=== PATIENT | female | born 1990 | race Caucasian/White ===

== ENCOUNTER 2019-08-31 05:40 | Inpatient (IN) | payer MEDICAID ==
[~2019-08-31 05:40] MED LIST: Bupivacaine 0.25% 10 ML SDV ONE; Nalbuphine 10 MG/1 ML Vial IVPUSH PRN; Sodium Chloride 0.9% 10 ML Syringe FLUSH PRN
[2019-08-31] MEDS ORDERED: Terbutaline 1 MG/ML SDV SUBCUT ONE (06:52)
--- NOTE | 2019-08-31 07:39 | PCM.PREANE ---
Preanesthetic Assessment - Anesthesia/Transfusion/Family Hx Anesthesia History: Prior Anesthesia Without Reaction Family History of Anesthesia Reaction: No Transfusion History: No Prior Transfusion(s) - Review of Systems General: No Symptoms Pulmonary: No Symptoms Cardiovascular: No Symptoms Gastrointestinal: No Symptoms Neurological: No Symptoms Other: Reports: None - Physical Assessment Vital Signs: Last Vital Signs Temp 36.3 C 08/31/19 05:58 Pulse 81 08/31/19 05:58 Resp 16 08/31/19 05:58 BP 111/73 08/31/19 05:58 Pulse Ox 100 08/31/19 05:58 Height: 5 ft 3 in Weight: 79.424 kg ASA Class: 1 Mental Status: Alert & Oriented x3 Airway Class: Mallampati = 2 Dentition: Reports: Normal Dentition ROM/Head Extension: Full Lungs: Clear to Auscultation, Normal Respiratory Effort Cardiovascular: Regular Rate, Regular Rhythm - Lab Values: Laboratory Last Values WBC 9.98 K/mm3 (3.98-10.04) 08/31/19 06:24 RBC 3.94 M/mm3 (3.98-5.22) L 08/31/19 06:24 Hgb 12.3 gm/dl (11.2-15.7) 08/31/19 06:24 Hct 35.7 % (34.1-44.9) 08/31/19 06:24 MCV 90.6 fl (79.4-94.8) 08/31/19 06:24 MCH 31.2 pg (25.6-32.2) 08/31/19 06:24 MCHC 34.5 g/dl (32.2-35.5) 08/31/19 06:24 RDW Std Deviation 42.4 fL (36.4-46.3) 08/31/19 06:24 Plt Count 170 K/mm3 (182-369) L 08/31/19 06:24 MPV 12.1 fl (9.4-12.3) 08/31/19 06:24 Neut % (Auto) 71.7 % (34.0-71.1) H 08/31/19 06:24 Lymph % (Auto) 17.5 % (19.3-51.7) L 08/31/19 06:24 [place] % (Auto) 9.3 % (4.7-12.5) 08/31/19 06:24 Eos % (Auto) 1.3 (0.7-5.8) 08/31/19 06:24 Baso % (Auto) 0.2 % (0.1-1.2) 08/31/19 06:24 Neut # (Auto) 7.15 K/mm3 (1.56-6.13) H 08/31/19 06:24 Lymph # (Auto) 1.75 K/mm3 (1.18-3.74) 08/31/19 06:24 [place] # (Auto) 0.93 K/mm3 (0.24-0.36) H 08/31/19 06:24 Eos # (Auto) 0.13 K/mm3 (0.04-0.36) 08/31/19 06:24 Baso # (Auto) 0.02 K/mm3 (0.01-0.08) 08/31/19 06:24 - Allergies Allergies/Adverse Reactions: Allergies Allergy/AdvReac Type Severity Reaction Status Date / Time Penicillins Allergy Hives Verified 08/31/19 05:52 metals Allergy Rash Uncoded 08/31/19 05:52 - Acknowledgements Anesthesia Type Planned: Spinal Pt an Appropriate Candidate for the Planned Anesthesia: Yes Alternatives and Risks of Anesthesia Discussed w Pt/Guardian: Yes Pt/Guardian Understands and Agrees with Anesthesia Plan: Yes PreAnesthesia Questionnaire HEENT History: Reports: None Cardiovascular History: Reports: None Respiratory History: Reports: None Gastrointestinal History: Reports: None Genitourinary History: Reports: None 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: , Spontaneous , Therapeutic , Other (See Below) Other OB/BYN History: abnormal pap Musculoskeletal History: Reports: Back Pain, Chronic Neurological History: Reports: None Psychiatric History: Reports: None Endocrine/Metabolic History: Reports: None Hematologic History: Reports: Anemia Immunologic History: Reports: None Oncologic (Cancer) History: Reports: None Dermatologic History: Reports: None - Past Surgical History Female Surgical History: Reports: D&C - SUBSTANCE USE Smoking Status *Q: Former Smoker Tobacco Use Within Last Twelve Months: Cigarettes Recreational Drug Use History: No - HOME MEDS Home Medications: Home Meds PNV95/Ferrous Fumarate/FA [ Tablet] 1 tab PO DAILY 10/01/18 [History] Ascorbic Acid [Vitamin C] 250 mg PO 08/31/19 [History] Cyanocobalamin (Vitamin B-12) [B-12] 1,000 mcg PO 08/31/19 [History] Ferrous Sulfate, Dried [Iron] 150 mg PO 08/31/19 [History] - CURRENT (IN HOUSE) MEDS Current Meds: Current Medications Lactated Ringer's (Ringers, Lactated) 1,000 mls @ 100 mls/hr IV ASDIRECTED NISHA Nalbuphine HCl (Nubain) 10 mg IVPUSH Q2H PRN PRN Reason: Pain Sodium Chloride (Saline Flush) 10 ml FLUSH ASDIRECTED PRN PRN Reason: Keep Vein Open Discontinued Medications Terbutaline Sulfate (Brethine) 0.25 mg SUBCUT ONETIME ONE Stop: 08/31/19 06:53 Last Admin: 08/31/19 07:17 Dose: 0.25 mg
[2019-08-31] MEDS ORDERED: fentaNYL 100 MCG/2 ML SDV EPIDUR PRN (07:40)
[2019-08-31] MEDS ORDERED: Ondansetron 4 MG/2 ML SDV IVPUSH PRN (07:40)
[2019-08-31] MEDS ORDERED: ePHEDrine 50 MG/ML SDV IVPUSH PRN (07:40)
--- NOTE | 2019-08-31 07:43 | PCM.PREANE ---
Preanesthetic Assessment - Anesthesia/Transfusion/Family Hx Anesthesia History: Prior Anesthesia Without Reaction Family History of Anesthesia Reaction: No Transfusion History: No Prior Transfusion(s) Intubation History: Unknown - Review of Systems General: No Symptoms Pulmonary: No Symptoms Cardiovascular: Lightheadedness (positonal changes with ) Gastrointestinal: No Symptoms (GERD) Neurological: No Symptoms Other: Reports: None - Physical Assessment NPO Status Date: 08/31/19 NPO Status Time: 08:30 Vital Signs: Last Vital Signs Temp 36.3 C 08/31/19 05:58 Pulse 81 08/31/19 05:58 Resp 16 08/31/19 05:58 BP 111/73 08/31/19 05:58 Pulse Ox 100 08/31/19 05:58 Height: 1.6 m Weight: 79.424 kg ASA Class: 2 Mental Status: Alert & Oriented x3 Airway Class: Mallampati = 2 Dentition: Reports: Normal Dentition, [place] Thyro-Mental Finger Breadths: 3 Mouth Opening Finger Breadths: 3 ROM/Head Extension: Full Lungs: Clear to Auscultation, Normal Respiratory Effort Cardiovascular: Regular Rate, Regular Rhythm, No Murmurs - Lab Values: Laboratory Last Values WBC 9.98 K/mm3 (3.98-10.04) 08/31/19 06:24 RBC 3.94 M/mm3 (3.98-5.22) L 08/31/19 06:24 Hgb 12.3 gm/dl (11.2-15.7) 08/31/19 06:24 Hct 35.7 % (34.1-44.9) 08/31/19 06:24 MCV 90.6 fl (79.4-94.8) 08/31/19 06:24 MCH 31.2 pg (25.6-32.2) 08/31/19 06:24 MCHC 34.5 g/dl (32.2-35.5) 08/31/19 06:24 RDW Std Deviation 42.4 fL (36.4-46.3) 08/31/19 06:24 Plt Count 170 K/mm3 (182-369) L 08/31/19 06:24 MPV 12.1 fl (9.4-12.3) 08/31/19 06:24 Neut % (Auto) 71.7 % (34.0-71.1) H 10/02/19 06:24 Lymph % (Auto) 17.5 % (19.3-51.7) L 08/31/19 06:24 [place] % (Auto) 9.3 % (4.7-12.5) 08/31/19 06:24 Eos % (Auto) 1.3 (0.7-5.8) 08/31/19 06:24 Baso % (Auto) 0.2 % (0.1-1.2) 08/31/19 06:24 Neut # (Auto) 7.15 K/mm3 (1.56-6.13) H 08/31/19 06:24 Lymph # (Auto) 1.75 K/mm3 (1.18-3.74) 08/31/19 06:24 [place] # (Auto) 0.93 K/mm3 (0.24-0.36) H 08/31/19 06:24 Eos # (Auto) 0.13 K/mm3 (0.04-0.36) 08/31/19 06:24 Baso # (Auto) 0.02 K/mm3 (0.01-0.08) 08/31/19 06:24 Above labs reviewed and noted and within acceptable ranges to proceed with epidural if desired. - Allergies Allergies/Adverse Reactions: Allergies Allergy/AdvReac Type Severity Reaction Status Date / Time Penicillins Allergy Hives Verified 08/31/19 05:52 metals Allergy Rash Uncoded 08/31/19 05:52 - Anesthesia Plan Pre-Op Medication Ordered: None - Acknowledgements Anesthesia Type Planned: Epidural Pt an Appropriate Candidate for the Planned Anesthesia: Yes Alternatives and Risks of Anesthesia Discussed w Pt/Guardian: Yes Pt/Guardian Understands and Agrees with Anesthesia Plan: Yes PreAnesthesia Questionnaire HEENT History: Reports: None Cardiovascular History: Reports: None Respiratory History: Reports: None Gastrointestinal History: Reports: None Genitourinary History: Reports: None [employer] History: Reports: , Spontaneous , Therapeutic , Other (See Below) Other OB/BYN History: abnormal pap Musculoskeletal History: Reports: Back Pain, Chronic Neurological History: Reports: None Psychiatric History: Reports: None Endocrine/Metabolic History: Reports: None Hematologic History: Reports: Anemia Immunologic History: Reports: None Oncologic (Cancer) History: Reports: None Dermatologic History: Reports: None - Past Surgical History Female Surgical History: Reports: D&C, Dilitation & Evacuation - SUBSTANCE USE Smoking Status *Q: Former Smoker Tobacco Use Within Last Twelve Months: Cigarettes Recreational Drug Use History: No - HOME MEDS Home Medications: Home Meds PNV95/Ferrous Fumarate/FA [ Tablet] 1 tab PO DAILY 10/01/18 [History] Ascorbic Acid [Vitamin C] 250 mg PO 08/31/19 [History] Cyanocobalamin (Vitamin B-12) [B-12] 1,000 mcg PO 08/31/19 [History] Ferrous Sulfate, Dried [Iron] 150 mg PO 08/31/19 [History] - CURRENT (IN HOUSE) MEDS Current Meds: Current Medications Lactated Ringer's (Ringers, Lactated) 1,000 mls @ 100 mls/hr IV ASDIRECTED NISHA Nalbuphine HCl (Nubain) 10 mg IVPUSH Q2H PRN PRN Reason: Pain Sodium Chloride (Saline Flush) 10 ml FLUSH ASDIRECTED PRN PRN Reason: Keep Vein Open Discontinued Medications Terbutaline Sulfate (Brethine) 0.25 mg SUBCUT ONETIME ONE Stop: 08/31/19 06:53 Last Admin: 08/31/19 07:17 Dose: 0.25 mg
[2019-08-31] MEDS ORDERED: Bupivacaine/fentaNYL/NS 100 ML Bag EPIDUR SCH (07:45)
--- NOTE | 2019-08-31 07:51 | PCM.PRNOTE ---
- Free Text/Narrative Note: PROCEDURE NOTE Procedure Date: 08/31/2019 Pre-operative Diagnosis: 1. at 39 3/7 wks gestation 2. Breech Presentation Post-operative Diagnosis: 1. As above s/p successful external cephalic version Anesthesia: None Description of Operation/Procedure: The risks, benefits, indications, potential complications, and alternatives were explained to the patient and informed consent obtained. Patient was placed in the supine position. Ultrasound was used to confirm complete breech presentation and appropriate CALLI. Terbutaline 0.25 mg subcutaneous was given. Hands were placed on the patient's abdomen. The breech was elevated out of the pelvis while clockwise traction was applied to the head. Minimal movement noted with this attempt. Patient allowed then time rest and second attempt made putting counterclockwise traction to the head. Baby did move with this motion. Ultrasound confirmed cephalic presentation as well as cardiac activity. The patient tolerated the procedure well. Complications: The patient tolerated the procedure well and no complications were noted. Plan: Will begin IOL.
[2019-08-31] MEDS: Lactated Ringers 1,000 ML IV SCH ×3 (07:55→21:32)
[2019-08-31] MEDS ORDERED: ceFAZolin 2 GM in Premix Bag 1 BAG IV ONE (08:00)
[2019-08-31] MEDS: Oxytocin/Lactated Ringers 10 UNIT/1,000 ML BAG IV SCH ×2 (08:01→18:21)
--- NOTE | 2019-08-31 11:13 | PCM.PNLD ---
Labor Progress Note - VS & Meds Vital Signs: Last Vital Signs Temp 36.3 C 08/31/19 05:58 Pulse 81 08/31/19 05:58 Resp 16 08/31/19 05:58 BP 111/73 08/31/19 05:58 Pulse Ox 100 08/31/19 05:58 Active Medications: Current Medications Ephedrine Sulfate (Ephedrine Sulfate) 5 mg IVPUSH ASDIRECTED PRN PRN Reason: Hypotension Fentanyl (Sublimaze) 100 mcg EPIDUR Q3H PRN PRN Reason: Pain Fentanyl/Bupivacaine HCl (Fentanyl/Bupivacaine/Ns 2 Mcg-0.125% 100 Ml) 100 ml EPIDUR ASDIRECTED NISHA Lactated Ringer's (Ringers, Lactated) 1,000 mls @ 100 mls/hr IV ASDIRECTED NISHA Last Admin: 08/31/19 07:55 Dose: 100 mls/hr Cefazolin Sodium/Dextrose 1 gm (/ Premix) 50 mls @ 100 mls/hr IV Q8H INSHA Oxytocin/Lactated Ringer's (Pitocin In Lr 10 Units/1,000 Ml) 10 unit in 1,000 mls @ 12 mls/hr IV TITRATE NISHA; Protocol Last Titration: 08/31/19 09:35 Dose: 8 munits/min, 48 mls/hr Nalbuphine HCl (Nubain) 10 mg IVPUSH Q2H PRN PRN Reason: Pain Ondansetron HCl (Zofran) 4 mg IVPUSH ONETIME PRN PRN Reason: Nausea/Vomiting Sodium Chloride (Saline Flush) 10 ml FLUSH ASDIRECTED PRN PRN Reason: Keep Vein Open Discontinued Medications Cefazolin Sodium/Dextrose 2 gm (/ Premix) 50 mls @ 100 mls/hr IV ONETIME ONE Stop: 08/31/19 08:29 Last Admin: 08/31/19 07:55 Dose: 100 mls/hr Terbutaline Sulfate (Brethine) 0.25 mg SUBCUT ONETIME ONE Stop: 08/31/19 06:53 Last Admin: 08/31/19 07:17 Dose: 0.25 mg - Uterine Contractions Uterine Monitoring Mode: External [place] Contraction Intensity: Mild Uterine Resting Tone: Soft - Monitoring Monitor Mode: External Ultrasound Heart Rate (FHR) Baseline: 135 Heart Rate (FHR) Variability: Moderate (6-25 bmp) Accelerations: Present, 15x15 Decelerations: None Strip Review: Category I - Vaginal Exam Dilation (cm): 1.5 Effacement (Percent): 50 Station: -2 Cervical Position: Anterior - Labor Progress (Free Text) Labor Progress: Baby still VTX on bedside scan. Pitocin at 12. Doing well otherwise. Attempt at AROM done, but no great release of fluid noted. Will attempt again later.
[2019-08-31] MEDS ORDERED: ceFAZolin 1 GM in Premix Bag 1 BAG IV SCH (16:00)
--- NOTE | 2019-08-31 19:23 | PCM.PNLD ---
Labor Progress Note - VS & Meds Vital Signs: Last Vital Signs Temp 36.3 C 08/31/19 05:58 Pulse 81 08/31/19 05:58 Resp 16 08/31/19 05:58 BP 111/73 08/31/19 05:58 Pulse Ox 100 08/31/19 05:58 Active Medications: Current Medications Ephedrine Sulfate (Ephedrine Sulfate) 5 mg IVPUSH ASDIRECTED PRN PRN Reason: Hypotension Fentanyl (Sublimaze) 100 mcg EPIDUR Q3H PRN PRN Reason: Pain Fentanyl/Bupivacaine HCl (Fentanyl/Bupivacaine/Ns 2 Mcg-0.125% 100 Ml) 100 ml EPIDUR ASDIRECTED NISAH Lactated Ringer's (Ringers, Lactated) 1,000 mls @ 100 mls/hr IV ASDIRECTED NISHA Last Admin: 08/31/19 07:55 Dose: 100 mls/hr Cefazolin Sodium/Dextrose 1 gm (/ Premix) 50 mls @ 100 mls/hr IV Q8H [facility] Last Admin: 08/31/19 16:04 Dose: 100 mls/hr Oxytocin/Lactated Ringer's (Pitocin In Lr 10 Units/1,000 Ml) 10 unit in 1,000 mls @ 12 mls/hr IV TITRATE NISHA; Protocol Last Titration: 08/31/19 19:21 Dose: 22 munits/min, 132 mls/hr Nalbuphine HCl (Nubain) 10 mg IVPUSH Q2H PRN PRN Reason: Pain Ondansetron HCl (Zofran) 4 mg IVPUSH ONETIME PRN PRN Reason: Nausea/Vomiting Sodium Chloride (Saline Flush) 10 ml FLUSH ASDIRECTED PRN PRN Reason: Keep Vein Open Discontinued Medications Cefazolin Sodium/Dextrose 2 gm (/ Premix) 50 mls @ 100 mls/hr IV ONETIME ONE Stop: 08/31/19 08:29 Last Admin: 08/31/19 07:55 Dose: 100 mls/hr Terbutaline Sulfate (Brethine) 0.25 mg SUBCUT ONETIME ONE Stop: 08/31/19 06:53 Last Admin: 08/31/19 07:17 Dose: 0.25 mg - Uterine Contractions Uterine Monitoring Mode: External [place] Contraction Intensity: Mild to Moderate Uterine Resting Tone: Soft - Monitoring Monitor Mode: External Ultrasound Heart Rate (FHR) Baseline: 140 Heart Rate (FHR) Variability: Moderate (6-25 bmp) Accelerations: Present, 15x15 Decelerations: Early, Variable - Vaginal Exam Dilation (cm): 3 Effacement (Percent): 80 Station: -1 Cervical Position: Anterior - Labor Progress (Free Text) Labor Progress: Doing well. AROM at 1400. Pitocin currently at 21. Continue per protocol. Anticipate
--- NOTE | 2019-08-31 23:23 | PCM.DEL ---
L & D Note - General Info Date of Service: 08/31/19 - Delivery Note Labor: Induced by ARM, Induced by Oxytocin Delivery Outcome: Livebirth Infant Delivery Method: Spontaneous Vaginal Delivery-Single Infant Delivery Mode: Spontaneous Presentation: Left Occiput Anterior (ZHANNA) Nuchal Cord: None Anesthesia Type: Epidural Amniotic Fluid Description: Clear Episiotomy Type: None Laceration: None Placenta: Intact, Spontaneous Cord: 3 Vessels Estimated Blood Loss: 200 : Bulb Syringe, Stimulated, Warmed, [place] Used, Warmer Used Delivery Comments (Free Text/Narrative):: Patient found to be complete and began pushing. With maternal pushing effort head delivered from an ZHANNA presentation. No nuchal cord present. With gentle downward traction the shoulders and body delivered. placed on maternal abdomen. Cord clamped and cut. Cord blood obtained. Placenta allowed time to separate and expelled intact. Inspection of the perineum showed no lacerations - General Info Date of Service: 08/31/19 - Patient Data Weight - Most Recent: 79.424 kg I&O - Last 24 Hours: Intake & Output 08/31/19 08/31/19 09/01/19 14:59 22:59 06:59 Intake Total 60 3491 800 Balance 60 3491 800 - Problem List & Annotations (1) Breech presentation SNOMED Code(s): 4226405 Code(s): O32.1XX0 - MATERNAL CARE FOR BREECH PRESENTATION, UNSP Status: Acute Current Visit: Yes (2) Successful external cephalic version SNOMED Code(s): 23797664 Code(s): PRX8176 - Status: Acute Current Visit: Yes (3) Vaginal delivery SNOMED Code(s): 073529497 Code(s): O80 - ENCOUNTER FOR FULL-TERM UNCOMPLICATED DELIVERY Status: Acute Current Visit: Yes - Problem List Review Problem List Initiated/Reviewed/Updated: Yes - My Orders Last 24 Hours: My Active Orders 08/31/19 01:07 Nalbuphine [Nubain] 10 mg IVPUSH Q2H PRN Sodium Chloride 0.9% [Saline Flush] 10 ml FLUSH ASDIRECTED PRN Resuscitation Status Routine 08/31/19 01:08 Patient Status [ADT] Routine Activity as Tolerated [RC] PFP Communication Order [RC] ASDIRECTED Non Stress Test [RC] PER UNIT ROUTINE Notify Provider [RC] PFP Notify Provider [RC] PRN Vital Signs [RC] PER UNIT ROUTINE Electronic Heart Tones Ext w TOCO [WOMSER] Routine Electronic Heart Tones Internal [WOMSER] Per Unit Routine Peripheral IV Insertion Adult [OM.PC] Routine 08/31/19 01:09 Heart Tones [RC] ASDIRECTED Peripheral IV Care [RC] . DIRECTED 08/31/19 01:11 Communication Order [RC] ROUTINE Procedure Site Prep Instruct [RC] ASDIRECTED Urinary Catheter Assessment [RC] ASDIRECTED Verify Patient Consent Obtain [RC] PER UNIT ROUTINE DVT/VTE Prophylaxis Reflex [OM.PC] Routine Schedule Procedure [COMM] Per Unit Routine 08/31/19 01:13 Antiembolic Devices [RC] .Routine VTE/DVT Education [RC] PER UNIT ROUTINE 08/31/19 01:15 Lactated Ringers [Ringers, Lactated] 1,000 ml IV ASDIRECTED 08/31/19 07:45 Oxytocin/Lactated Ringers [Pitocin in LR 10 Units/1,000 ML] 10 unit in 1,000 ml IV TITRATE 08/31/19 15:24 Pump Management, Intrathecal [RC] ASDIRECTED 08/31/19 16:00 ceFAZolin [Ancef] 1 gm Premix Bag 1 bag IV Q8H 08/31/19 23:21 Patient Status Manage Transfer [TRANSFER] Routine 08/31/19 Breakfast Regular Diet [DIET] - Assessment Assessment:: 28 y/o G2 now P2 PPD#0 from - Plan Plan:: * Routine cares * Encourage breast feeding * Discharge home in 2 days
[2019-08-31] MEDS ORDERED: Lanolin 100% Cream 7 GM Tube TOP PRN (23:39)
[2019-08-31] MEDS ORDERED: Witch Hazel Medicated Pads 40/Jar TOP PRN (23:39)
[2019-08-31] MEDS ORDERED: Benzocaine/Menthol 20%-0.5% Spray 56 GM Canister TOP PRN (23:39)
[2019-08-31] MEDS ORDERED: Docusate Sodium 100 MG Cap PO PRN (23:39)
[2019-08-31] MEDS ORDERED: Acetaminophen 325 MG Tab PO PRN (23:39)
[2019-08-31] MEDS ORDERED: Oxytocin/Lactated Ringers 10 UNIT/1,000 ML BAG IV ONE (23:45)
[2019-09-01] MEDS: Oxytocin/Lactated Ringers 10 UNIT/1,000 ML BAG IV SCH (00:10)
[2019-09-01] MEDS: Ibuprofen 600 MG Tab PO PRN ×3 (00:44→18:30)
--- NOTE | 2019-09-01 06:57 | PCM.PNPP ---
- General Info Date of Service: 09/01/19 Functional Status: Reports: Pain Controlled, Tolerating Diet, Ambulating, Urinating - Review of Systems General: Reports: No Symptoms Pulmonary: Reports: No Symptoms Cardiovascular: Reports: No Symptoms Gastrointestinal: Reports: No Symptoms Genitourinary: Reports: No Symptoms Musculoskeletal: Reports: No Symptoms Neurological: Reports: No Symptoms - Patient Data Vital Signs - Most Recent: Last Vital Signs Temp 36.6 C 09/01/19 02:48 Pulse 74 09/01/19 02:48 Resp 16 09/01/19 02:48 BP 128/94 H 09/01/19 02:48 Pulse Ox 97 09/01/19 02:48 Weight - Most Recent: 79.424 kg I&O - Last 24 Hours: Intake & Output 08/31/19 08/31/19 09/01/19 14:59 22:59 06:59 Intake Total 60 3491 2200 Balance 60 3491 2200 Lab Results - Last 24 Hours: Laboratory Results - last 24 hr 08/31/19 08/31/19 Range/Units 06:24 06:24 RPR Non-reactive (NONREACTIVE) Blood Type A POSITIVE Gel Antibody Screen Negative Med Orders - Current: Current Medications Acetaminophen (Tylenol) 650 mg PO Q4H PRN PRN Reason: mild pain or fever Benzocaine/Menthol (Dermoplast Pain Relief [place]) 0 gm TOP ASDIRECTED PRN PRN Reason: Perineal Comfort Measure Last Admin: 09/01/19 00:45 Dose: 1 applic Docusate Sodium (Colace) 100 mg PO BID PRN PRN Reason: Constipation Emollient Ointment (Lansinoh Hpa) 0 gm TOP ASDIRECTED PRN PRN Reason: Sore Nipples Ibuprofen (Motrin) 600 mg PO Q6H PRN PRN Reason: Mild pain or fever Last Admin: 09/01/19 00:44 Dose: 600 mg Witch Maite (Tucks) 1 pad TOP ASDIRECTED PRN PRN Reason: Perineal Comfort Measure Last Admin: 09/01/19 00:45 Dose: 1 applic Discontinued Medications Ephedrine Sulfate (Ephedrine Sulfate) 5 mg IVPUSH ASDIRECTED PRN PRN Reason: Hypotension Fentanyl (Sublimaze) 100 mcg EPIDUR Q3H PRN PRN Reason: Pain Last Admin: 08/31/19 21:17 Dose: 100 mcg Fentanyl/Bupivacaine HCl (Fentanyl/Bupivacaine/Ns 2 Mcg-0.125% 100 Ml) 100 ml EPIDUR ASDIRECTED [facility] Last Admin: 08/31/19 21:17 Dose: 100 ml Lactated Ringer's (Ringers, Lactated) 1,000 mls @ 100 mls/hr IV ASDIRECTED NISHA Last Admin: 08/31/19 21:32 Dose: 100 mls/hr Cefazolin Sodium/Dextrose 2 gm (/ Premix) 50 mls @ 100 mls/hr IV ONETIME ONE Stop: 08/31/19 08:29 Last Admin: 08/31/19 07:55 Dose: 100 mls/hr Cefazolin Sodium/Dextrose 1 gm (/ Premix) 50 mls @ 100 mls/hr IV Q8H [facility] Last Admin: 08/31/19 16:04 Dose: 100 mls/hr Oxytocin/Lactated Ringer's (Pitocin In Lr 10 Units/1,000 Ml) 10 unit in 1,000 mls @ 12 mls/hr IV TITRATE NISHA; Protocol Last Admin: 09/01/19 00:10 Dose: 250 mls/hr Oxytocin/Lactated Ringer's (Pitocin In Lr 10 Units/1,000 Ml) Confirm Administered Dose 10 unit in 1,000 mls @ as directed IV .STK-MED ONE Stop: 08/31/19 23:46 Last Admin: 09/01/19 00:01 Dose: Not Given Nalbuphine HCl (Nubain) 10 mg IVPUSH Q2H PRN PRN Reason: Pain Ondansetron HCl (Zofran) 4 mg IVPUSH ONETIME PRN PRN Reason: Nausea/Vomiting Sodium Chloride (Saline Flush) 10 ml FLUSH ASDIRECTED PRN PRN Reason: Keep Vein Open Terbutaline Sulfate (Brethine) 0.25 mg SUBCUT ONETIME ONE Stop: 08/31/19 06:53 Last Admin: 08/31/19 07:17 Dose: 0.25 mg - Infant Interaction Infant Disposition, : [place] in Room with Family Interaction: Holding Infant Feeding: Attempted ; Nursed Fair/Poor Support Person: Significant Other - Recovery Exam Fundal Tone: Firm Fundal Level: At Umbilicus Fundal Placement: Midline Lochia Amount: Small Lochia Color: Rubra/Red Perineum Description: Intact, Minimal Bruising/Swelling Episiotomy/Laceration: Approximated Bladder Status: Voiding Urinary Elimination: Voided - Exam General: Alert, Oriented, Cooperative GI/Abdominal Exam: Soft, Non-Tender Extremities: Normal Inspection Skin: Warm, Dry, Intact - Problem List & Annotations (1) Breech presentation SNOMED Code(s): 3609935 Code(s): O32.1XX0 - MATERNAL CARE FOR BREECH PRESENTATION, UNSP Status: Acute Current Visit: Yes (2) Successful external cephalic version SNOMED Code(s): 62997083 Code(s): HXI0541 - Status: Acute Current Visit: Yes (3) Vaginal delivery SNOMED Code(s): 267728598 Code(s): O80 - ENCOUNTER FOR FULL-TERM UNCOMPLICATED DELIVERY Status: Acute Current Visit: Yes - Problem List Review Problem List Initiated/Reviewed/Updated: Yes - My Orders Last 24 Hours: My Active Orders 08/31/19 23:39 Activity as Tolerated [RC] PER UNIT ROUTINE Vital Signs [RC] 03,09,15,21 Acetaminophen [Tylenol] 650 mg PO Q4H PRN Benzocaine/Menthol [Dermoplast Pain Relief [place]] See Dose Instructions TOP ASDIRECTED PRN Docusate Sodium [Colace] 100 mg PO BID PRN Ibuprofen [Motrin] 600 mg PO Q6H PRN Lanolin [Lansinoh HPA] See Dose Instructions TOP ASDIRECTED PRN Witch Maite [Tucks] 1 pad TOP ASDIRECTED PRN Assess Lochia [WOMSER] Per Unit Routine Assess Uterine Involution [WOMSER] Per Unit Routine Breast Pump [WOMSER] Per Unit Routine Heat Therapy [OM.PC] PRN Ice Therapy [OM.PC] Per Unit Routine Perineal Care [OM.PC] Per Unit Routine Sitz Bath [OM.PC] Per Unit Routine 08/31/19 Breakfast Regular Diet [DIET] 09/01/19 23:39 Heat Therapy [OM.PC] PRN - Assessment Assessment:: 28 y/o G2 now P2 PPD#1 from - Plan Plan:: * Routine cares * Encourage breast feeding * Discharge home tomorrow
--- NOTE | 2019-09-01 10:16 | PCM48HPAN ---
Post Anesthesia Note - EVALUATION WITHIN 48HRS OF ANESTHETIC Vital Signs in Normal Range: Yes Patient Participated in Evaluation: Yes Respiratory Function Stable: Yes Airway Patent: Yes Cardiovascular Function Stable: Yes Hydration Status Stable: Yes Pain Control Satisfactory: Yes Nausea and Vomiting Control Satisfactory: Yes Mental Status Recovered: Yes Vital Signs: Last Vital Signs Temp 97.7 F 09/01/19 07:56 Pulse 59 L 09/01/19 07:56 Resp 14 09/01/19 07:56 BP 108/61 09/01/19 07:56 Pulse Ox 100 09/01/19 07:56
--- NOTE | 2019-09-02 06:39 | PCM.DCSUM1 ---
Discharge Summary - Discharge Data Discharge Date: 09/02/19 Discharge Disposition: Home, Self-Care 01 Condition: Good - Referral to Home Health Primary Care Physician: Audrey Dumont MD - Discharge Diagnosis/Problem(s) (1) Breech presentation SNOMED Code(s): 6232540 ICD Code: O32.1XX0 - MATERNAL CARE FOR BREECH PRESENTATION, UNSP Status: Acute Current Visit: Yes Qualifiers: Fetus number: single or unspecified fetus Qualified Code(s): O32.1XX0 - Maternal care for breech presentation, not applicable or unspecified (2) Successful external cephalic version SNOMED Code(s): 84260518 ICD Code: [id number] - Status: Acute Current Visit: Yes (3) Vaginal delivery SNOMED Code(s): 139952168 ICD Code: O80 - ENCOUNTER FOR FULL-TERM UNCOMPLICATED DELIVERY Status: Acute Current Visit: Yes - Patient Summary/Data Complications: None Consults: None Recommended Follow-up Testing/Procedures: Follow up in 3 weeks for check Hospital Course: 28 y/o at 39 3/7 wks presented to L&D for attempted ECV. This was done and successful. See procedure note. Induction then started with pitocin and AROM. She progressed well and underwent an uncomplicated . See delivery note. course uncomplicated and she was discharged home on PPD#2 - Patient Instructions Diet: Regular Diet as Tolerated Activity: As Tolerated Activity, Other: Pelvic Rest for 6 weeks Driving: May Drive Today Showering/Bathing: May Shower Showering/Bathing, Other: May Bathe Notify Provider of: Fever, Increased Pain, Swelling and Redness, Drainage, Nausea and/or Vomiting - Discharge Plan *PRESCRIPTION DRUG MONITORING PROGRAM REVIEWED*: Not Applicable *COPY OF PRESCRIPTION DRUG MONITORING REPORT IN PATIENT GREG: Not Applicable Home Medications: Home Meds PNV95/Ferrous Fumarate/FA [ Tablet] 1 tab PO DAILY 10/01/18 [History] Ibuprofen [Motrin] 600 mg PO Q6H PRN tablet 09/01/19 [Rx] Referrals: Audrey Dumont MD [Primary Care Provider] - (3 weeks for post check ) - Discharge Summary/Plan Comment DC Time >30 min.: No - Patient Data Vitals - Most Recent: Last Vital Signs Temp 36.4 C 09/02/19 03:09 Pulse 65 09/02/19 03:09 Resp 15 09/02/19 03:09 BP 113/65 09/02/19 03:09 Pulse Ox 99 09/02/19 03:09 Weight - Most Recent: 79.424 kg Med Orders - Current: Current Medications Acetaminophen (Tylenol) 650 mg PO Q4H PRN PRN Reason: mild pain or fever Benzocaine/Menthol (Dermoplast Pain Relief [place]) 0 gm TOP ASDIRECTED PRN PRN Reason: Perineal Comfort Measure Last Admin: 09/01/19 00:45 Dose: 1 applic Docusate Sodium (Colace) 100 mg PO BID PRN PRN Reason: Constipation Emollient Ointment (Lansinoh Hpa) 0 gm TOP ASDIRECTED PRN PRN Reason: Sore Nipples Ibuprofen (Motrin) 600 mg PO Q6H PRN PRN Reason: Mild pain or fever Last Admin: 09/01/19 18:30 Dose: 600 mg Witch Maite (Tucks) 1 pad TOP ASDIRECTED PRN PRN Reason: Perineal Comfort Measure Last Admin: 09/01/19 00:45 Dose: 1 applic Discontinued Medications Bupivacaine HCl (Sensorcaine-Mpf 0.25%) 10 ml .ROUTE .STK-MED ONE Stop: 08/31/19 00:01 Ephedrine Sulfate (Ephedrine Sulfate) 5 mg IVPUSH ASDIRECTED PRN PRN Reason: Hypotension Fentanyl (Sublimaze) 100 mcg EPIDUR Q3H PRN PRN Reason: Pain Last Admin: 08/31/19 21:17 Dose: 100 mcg Fentanyl/Bupivacaine HCl (Fentanyl/Bupivacaine/Ns 2 Mcg-0.125% 100 Ml) 100 ml EPIDUR ASDIRECTED [facility] Last Admin: 08/31/19 21:17 Dose: 100 ml Lactated Ringer's (Ringers, Lactated) 1,000 mls @ 100 mls/hr IV ASDIRECTED [facility] Last Admin: 08/31/19 21:32 Dose: 100 mls/hr Cefazolin Sodium/Dextrose 2 gm (/ Premix) 50 mls @ 100 mls/hr IV ONETIME ONE Stop: 08/31/19 08:29 Last Admin: 08/31/19 07:55 Dose: 100 mls/hr Cefazolin Sodium/Dextrose 1 gm (/ Premix) 50 mls @ 100 mls/hr IV Q8H [facility] Last Admin: 08/31/19 16:04 Dose: 100 mls/hr Oxytocin/Lactated Ringer's (Pitocin In Lr 10 Units/1,000 Ml) 10 unit in 1,000 mls @ 12 mls/hr IV TITRATE [facility]; Protocol Last Admin: 09/01/19 00:10 Dose: 250 mls/hr Oxytocin/Lactated Ringer's (Pitocin In Lr 10 Units/1,000 Ml) Confirm Administered Dose 10 unit in 1,000 mls @ as directed IV .STK-MED ONE Stop: 08/31/19 23:46 Last Admin: 09/01/19 00:01 Dose: Not Given Nalbuphine HCl (Nubain) 10 mg IVPUSH Q2H PRN PRN Reason: Pain Ondansetron HCl (Zofran) 4 mg IVPUSH ONETIME PRN PRN Reason: Nausea/Vomiting Sodium Chloride (Saline Flush) 10 ml FLUSH ASDIRECTED PRN PRN Reason: Keep Vein Open Terbutaline Sulfate (Brethine) 0.25 mg SUBCUT ONETIME ONE Stop: 08/31/19 06:53 Last Admin: 08/31/19 07:17 Dose: 0.25 mg
--- NOTE | 2019-09-02 06:39 | PCM.PNPP ---
- General Info Date of Service: 09/02/19 Functional Status: Reports: Pain Controlled, Tolerating Diet, Ambulating, Urinating - Review of Systems General: Reports: No Symptoms Pulmonary: Reports: No Symptoms Cardiovascular: Reports: No Symptoms Gastrointestinal: Reports: No Symptoms Genitourinary: Reports: No Symptoms Musculoskeletal: Reports: No Symptoms - Patient Data Vital Signs - Most Recent: Last Vital Signs Temp 36.4 C 09/02/19 03:09 Pulse 65 09/02/19 03:09 Resp 15 09/02/19 03:09 BP 113/65 09/02/19 03:09 Pulse Ox 99 09/02/19 03:09 Weight - Most Recent: 79.424 kg Med Orders - Current: Current Medications Acetaminophen (Tylenol) 650 mg PO Q4H PRN PRN Reason: mild pain or fever Benzocaine/Menthol (Dermoplast Pain Relief [place]) 0 gm TOP ASDIRECTED PRN PRN Reason: Perineal Comfort Measure Last Admin: 09/01/19 00:45 Dose: 1 applic Docusate Sodium (Colace) 100 mg PO BID PRN PRN Reason: Constipation Emollient Ointment (Lansinoh Hpa) 0 gm TOP ASDIRECTED PRN PRN Reason: Sore Nipples Ibuprofen (Motrin) 600 mg PO Q6H PRN PRN Reason: Mild pain or fever Last Admin: 09/01/19 18:30 Dose: 600 mg Witch Maite (Tucks) 1 pad TOP ASDIRECTED PRN PRN Reason: Perineal Comfort Measure Last Admin: 09/01/19 00:45 Dose: 1 applic Discontinued Medications Bupivacaine HCl (Sensorcaine-Mpf 0.25%) 10 ml .ROUTE .STK-MED ONE Stop: 08/31/19 00:01 Ephedrine Sulfate (Ephedrine Sulfate) 5 mg IVPUSH ASDIRECTED PRN PRN Reason: Hypotension Fentanyl (Sublimaze) 100 mcg EPIDUR Q3H PRN PRN Reason: Pain Last Admin: 08/31/19 21:17 Dose: 100 mcg Fentanyl/Bupivacaine HCl (Fentanyl/Bupivacaine/Ns 2 Mcg-0.125% 100 Ml) 100 ml EPIDUR ASDIRECTED [facility] Last Admin: 08/31/19 21:17 Dose: 100 ml Lactated Ringer's (Ringers, Lactated) 1,000 mls @ 100 mls/hr IV ASDIRECTED [facility] Last Admin: 08/31/19 21:32 Dose: 100 mls/hr Cefazolin Sodium/Dextrose 2 gm (/ Premix) 50 mls @ 100 mls/hr IV ONETIME ONE Stop: 08/31/19 08:29 Last Admin: 08/31/19 07:55 Dose: 100 mls/hr Cefazolin Sodium/Dextrose 1 gm (/ Premix) 50 mls @ 100 mls/hr IV Q8H [facility] Last Admin: 08/31/19 16:04 Dose: 100 mls/hr Oxytocin/Lactated Ringer's (Pitocin In Lr 10 Units/1,000 Ml) 10 unit in 1,000 mls @ 12 mls/hr IV TITRATE [facility]; Protocol Last Admin: 09/01/19 00:10 Dose: 250 mls/hr Oxytocin/Lactated Ringer's (Pitocin In Lr 10 Units/1,000 Ml) Confirm Administered Dose 10 unit in 1,000 mls @ as directed IV .STK-MED ONE Stop: 08/31/19 23:46 Last Admin: 09/01/19 00:01 Dose: Not Given Nalbuphine HCl (Nubain) 10 mg IVPUSH Q2H PRN PRN Reason: Pain Ondansetron HCl (Zofran) 4 mg IVPUSH ONETIME PRN PRN Reason: Nausea/Vomiting Sodium Chloride (Saline Flush) 10 ml FLUSH ASDIRECTED PRN PRN Reason: Keep Vein Open Terbutaline Sulfate (Brethine) 0.25 mg SUBCUT ONETIME ONE Stop: 08/31/19 06:53 Last Admin: 08/31/19 07:17 Dose: 0.25 mg - Infant Interaction Infant Disposition, : [place] in Room with Family Interaction: Holding Infant Infant Feeding: Attempted ; Nursed Fair/Poor Support Person: Significant Other - Recovery Exam Fundal Tone: Firm Fundal Level: 1 Fingerbreadths Below Umbilicus Fundal Placement: Midline Lochia Amount: Small Lochia Color: Rubra/Red Perineum Description: Intact, Minimal Bruising/Swelling Episiotomy/Laceration: None Bladder Status: Voiding Urinary Elimination: Voided - Exam General: Alert, Oriented, Cooperative GI/Abdominal Exam: Soft, Non-Tender Extremities: Normal Inspection Skin: Warm, Dry, Intact - Problem List & Annotations (1) Breech presentation SNOMED Code(s): 7356828 Code(s): O32.1XX0 - MATERNAL CARE FOR BREECH PRESENTATION, UNSP Status: Acute Current Visit: Yes Qualifiers: Fetus number: single or unspecified fetus Qualified Code(s): O32.1XX0 - Maternal care for breech presentation, not applicable or unspecified (2) Successful external cephalic version SNOMED Code(s): 05577696 Code(s): [id number] - Status: Acute Current Visit: Yes (3) Vaginal delivery SNOMED Code(s): 971249307 Code(s): O80 - ENCOUNTER FOR FULL-TERM UNCOMPLICATED DELIVERY Status: Acute Current Visit: Yes - Problem List Review Problem List Initiated/Reviewed/Updated: Yes - My Orders Last 24 Hours: My Active Orders 09/01/19 23:39 Heat Therapy [OM.PC] PRN 09/02/19 06:38 Ready for Discharge [RC] PER UNIT ROUTINE - Assessment Assessment:: 28 y/o G2 now P2 PPD#2 from - Plan Plan:: * Routine cares * Encourage breast feeding * Discharge home today
[2019-09-02] MEDS: Ibuprofen 600 MG Tab PO PRN (07:53)
== END 2019-09-02 08:41 | disposition home or self-care (01) | DRG 788 ==
LOC: JD.OB 05:40 → EDSTATUS 08:00 → OBSVTOIN 23:08 → JD.OB 23:08
PROVIDERS: ADMIT Obstetrics & Gynecology; ATTEND Obstetrics & Gynecology
PROC: 10D00Z1 Extraction of Products of Conception, Low, Open Approach (ICD-10-PCS; principal; 2019-08-31)
DX: O32.1XX0 Maternal care for breech presentation, not applicable or unspecified (principal); O99.02 Anemia complicating childbirth; D64.9 Anemia, unspecified; Z37.0 Single live birth; Z3A.39 39 weeks gestation of pregnancy; Z87.891 Personal history of nicotine dependence
CPT/HCPCS: 01967; 36415; 51701; 59025; 59409; 59412; 85025; 86592; 86850; 86900; 86901; A9270-GY; J0690; J2590; J3010; J3105; J3490; J7120

== ENCOUNTER 2023-04-06 13:42 | Inpatient (IN) | payer BC, MEDICAID ==
[~2023-04-06 13:42] MED LIST changes: -Bupivacaine 0.25% 10 ML SDV ONE; -Nalbuphine 10 MG/1 ML Vial IVPUSH PRN; +Ropivacaine 0.2% PF 2 MG/ML 20 ML SDV ONE; -Sodium Chloride 0.9% 10 ML Syringe FLUSH PRN
[2023-04-06] MEDS ORDERED: Ondansetron 4 MG/2 ML SDV IVPUSH PRN (13:58)
[2023-04-06] MEDS ORDERED: Nalbuphine 10 MG/0.5 ML Syringe IVPUSH PRN (13:58)
[2023-04-06] MEDS ORDERED: Sodium Chloride 0.9% 10 ML Syringe FLUSH PRN (13:58)
[2023-04-06] MEDS ORDERED: Lidocaine 1% 50 ML MDV INJECT PRN (13:58)
[2023-04-06] MEDS ORDERED: Calcium Carbonate 500 MG Tab.Chew PO PRN (13:58)
[2023-04-06] MEDS ORDERED: Oxytocin/Lactated Ringers 10 UNIT/1,000 ML BAG IV SCH ×2 (14:00→15:00)
[2023-04-06 14:33] LABS: BASOPHILS ABSOLUTE AUTO 0.02 K/mm3 (0.01-0.08); BASOPHILS PERCENT AUTO 0.2 % (0.1-1.2); EOSINOPHILS ABSOLUTE AUTO 0.06 K/mm3 (0.04-0.36); EOSINOPHILS PERCENT AUTO 0.6 (0.7-5.8); HEMATOCRIT 35.3 % (34.1-44.9); HEMOGLOBIN 11.1 gm/dl (11.2-15.7); IMMATURE GRAN ABSOLUTE AUTO 0.04 K/mm3 (0.00-0.10); IMMATURE GRAN PERCENT AUTO 0.4 % (<=1.0); LYMPHOCYTES ABSOLUTE AUTO 1.31 K/mm3 (1.18-3.74); LYMPHOCYTES PERCENT AUTO 12.7 % (19.3-51.7); MEAN CORPUSCULAR HEMOGLOBIN 27.5 pg (25.6-32.2); MEAN CORPUSCULAR HGB CONC 31.4 g/dl (32.2-35.5); MEAN CORPUSCULAR VOLUME 87.4 fl (79.4-94.8); MEAN PLATELET VOLUME 12.4 fl (9.4-12.3); MONOCYTES ABSOLUTE AUTO 0.78 K/mm3 (0.24-0.36); MONOCYTES PERCENT AUTO 7.6 % (4.7-12.5); NEUTROPHILS ABSOLUTE AUTO 8.11 K/mm3 (1.56-6.13); NEUTROPHILS PERCENT AUTO 78.5 % (34.0-71.1); PLATELET COUNT,PLT 170 K/mm3 (182-369); RED BLOOD CELL COUNT 4.04 M/mm3 (3.98-5.22); WHITE BLOOD CELL COUNT,WBC 10.32 K/mm3 (3.98-10.04)
[2023-04-06] MEDS: Lactated Ringers 1,000 ML IV SCH ×2 (14:59→20:23)
[2023-04-06] MEDS ORDERED: Bupivacaine/fentaNYL/NS 100 ML Bag EPIDUR PRN (17:51)
[2023-04-06] MEDS ORDERED: ePHEDrine 50 MG/ML SDV IVPUSH PRN (17:51)
[2023-04-06] MEDS ORDERED: fentaNYL 100 MCG/2 ML SDV EPIDUR PRN (17:51)
[2023-04-06] MEDS ORDERED: diphenhydrAMINE 50 MG/ML SDV IVPUSH PRN (17:51)
[2023-04-06] MEDS ORDERED: Acetaminophen 325 MG Tab PO PRN ×2 (19:04→22:17)
[2023-04-06] MEDS ORDERED: Sodium Chloride 0.9% 10 ML Syringe FLUSH SCH (21:00)
[2023-04-06] MEDS ORDERED: Docusate Sodium 100 MG Cap PO PRN (22:17)
[2023-04-06] MEDS ORDERED: Ibuprofen 600 MG Tab PO PRN (22:17)
[2023-04-06] MEDS ORDERED: Witch Hazel Medicated Pads 40/Jar TOP PRN (22:17)
[2023-04-06] MEDS ORDERED: Benzocaine/Menthol 20%-0.5% Spray 78 GM Cannister TOP PRN (22:17)
== END 2023-04-08 08:47 | disposition home or self-care (01) | DRG 560 ==
LOC: JD.OB 13:42 → OBSVTOIN 21:24 → JD.OB 21:24
PROVIDERS: ADMIT Obstetrics & Gynecology; ATTEND Obstetrics & Gynecology
PROC: 10E0XZZ Delivery of Products of Conception, External Approach (ICD-10-PCS; principal; 2023-04-06)
PROC: 3E0R3BZ Introduction of Anesthetic Agent into Spinal Canal, Percutaneous Approach (ICD-10-PCS; 2023-04-06)
DX: O42.92 Full-term premature rupture of membranes, unspecified as to length of time between rupture and onset of labor (principal); Z37.0 Single live birth; F41.9 Anxiety disorder, unspecified; F32.A Depression, unspecified; O99.284 Endocrine, nutritional and metabolic diseases complicating childbirth; E03.9 Hypothyroidism, unspecified; Z3A.38 38 weeks gestation of pregnancy; Z88.0 Allergy status to penicillin; Z88.8 Allergy status to other drugs, medicaments and biological substances; Z79.890 Hormone replacement therapy; Z87.891 Personal history of nicotine dependence
CPT/HCPCS: 36415; 59025; 59409; 85025; 86592; A9270-GY; J2590; J2795; J3490; J7120

== ENCOUNTER 2023-10-15 13:35 | Emergency (ER) | payer BC, MEDICAID ==
[2023-10-15 14:22] LABS: BASOPHILS ABSOLUTE AUTO 0.1 K/mm3 (0.0-0.2); BASOPHILS PERCENT AUTO 0.7 % (0.0-1.0); EOSINOPHILS ABSOLUTE AUTO 0.1 K/mm3 (0.0-0.4); EOSINOPHILS PERCENT AUTO 1.2 % (0.0-6.0); HEMATOCRIT 41.3 % (37.0-47.0); HEMOGLOBIN 13.6 gm/dl (12.0-16.0); IMMATURE GRAN ABSOLUTE AUTO 0.01 K/mm3 (0.00-0.05); IMMATURE GRAN PERCENT AUTO 0.1 % (0.0-0.4); LYMPHOCYTES ABSOLUTE AUTO 1.6 K/mm3 (1.0-4.8); LYMPHOCYTES PERCENT AUTO 19.7 % (24.0-44.0); MEAN CORPUSCULAR HEMOGLOBIN 29.4 pg (28.0-32.0); MEAN CORPUSCULAR HGB CONC 32.9 g/dl (32.0-36.0); MEAN CORPUSCULAR VOLUME 89.4 fl (83.0-99.0); MEAN PLATELET VOLUME 10.5 fl (9.4-12.3); MONOCYTES ABSOLUTE AUTO 0.5 K/mm3 (0.0-0.8); MONOCYTES PERCENT AUTO 6.3 % (0.0-8.0); NEUTROPHILS ABSOLUTE AUTO 5.9 K/mm3 (1.8-7.7); PLATELET COUNT,PLT 293 K/mm3 (150-400); RED BLOOD CELL COUNT 4.62 M/mm3 (4.10-5.30); WHITE BLOOD CELL COUNT,WBC 8.23 K/mm3 (3.9-11.3)
[2023-10-15 14:51] LABS: A/G RATIO 1.2 (1-2); ALBUMIN 3.9 g/dl (3.4-5.0); ANION GAP 12.1 (5-15); BILIRUBIN TOTAL 0.3 mg/dL (0.2-1.0); BUN/CREATININE RATIO 17.5 (14-18); CALCIUM 8.4 mg/dL (8.5-10.1); CREATININE 0.8 mg/dL (0.55-1.02); EST CRCL DRUG DOSING (CG) 84.29 mL/min; POTASSIUM,K 4.1 mEq/L (3.5-5.1); PROTEIN TOTAL,TP 7.3 g/dl (6.4-8.2); TSH 1.103 uIU/mL (0.358-3.74)
[2023-10-15] MEDS ORDERED: Lactated Ringers 1,000 ML IV SCH (15:00)
== END 2023-10-15 16:22 | disposition home or self-care (01) ==
LOC: JD.ED 13:35
DX: R42 Dizziness and giddiness (principal); E03.9 Hypothyroidism, unspecified; Z79.899 Other long term (current) drug therapy; Z88.0 Allergy status to penicillin; Z91.048 Other nonmedicinal substance allergy status
CPT/HCPCS: 36415; 80053; 84443; 85025; 99284; J7120; 99283